=== PATIENT | male | born 1980 | race Caucasian/White ===

== ENCOUNTER → 2017-11-24 | Outpatient (CLI) | payer BC ==
--- NOTE | 2017-11-24 18:18 | RAD ---
EXAM DESCRIPTION: Chest,2 Views CLINICAL HISTORY: ACUTE BRONCHITIS COMPARISON: None TECHNIQUE: PA/lateral FINDINGS: 2 frontal films are required to cover the chest. There is no acute appearing cardiac or pulmonary abnormality. Heart size is normal with normal pulmonary vascularity. No pleural effusion or pneumothorax. Lungs are clear with no consolidating infiltrate. Lateral view shows intact sternum and T-spine. IMPRESSION: No acute process is identified in the chest. Electronically signed by: Neto Phillips MD 11/24/2017 6:17 PM CDT
== END ==
LOC: LAB.O 14:18
PROVIDERS: ATTEND Nurse Practitioner Family
DX: J20.9 Acute bronchitis, unspecified (principal)

== ENCOUNTER → 2018-06-15 | Outpatient (CLI) | payer BC ==
--- NOTE | 2018-06-16 09:33 | US ---
EXAM DESCRIPTION: Soft Tissue,Abdomen CLINICAL HISTORY: RLQ MASS AND SWELLING COMPARISON: None. TECHNIQUE: 2-D sonography of the right lower quadrant abdominal wall FINDINGS: Sonography reveals no solid or cystic mass. Some subcutaneous scarring is observed. No hernia is detected. IMPRESSION: Sonography fails to reveal evidence of a mass or hernia. Electronically signed by: Harvey Christensen MD 06/16/2018 9:32 AM CDT
== END ==
LOC: US 16:49
PROVIDERS: ATTEND Nurse Practitioner Family
DX: R19.03 Right lower quadrant abdominal swelling, mass and lump (principal)

== ENCOUNTER → 2018-07-27 | Outpatient (CLI) | payer BC ==
--- NOTE | 2018-07-27 15:07 | RAD ---
EXAM DESCRIPTION: Chest,2 Views CLINICAL HISTORY: PNEUMONIA COMPARISON: Previous study November 24, 2017 TECHNIQUE: PA/lateral FINDINGS: There is no acute appearing cardiac or pulmonary abnormality. Heart size is normal with normal pulmonary vascularity. No pleural effusion or pneumothorax. Lungs are clear with no consolidating infiltrate. Lateral view shows intact sternum and T-spine. IMPRESSION: No acute process is identified in the chest. Electronically signed by: Neto Phillips MD 07/27/2018 3:06 PM [facility]
== END ==
LOC: LAB.O 14:03
PROVIDERS: ATTEND Nurse Practitioner Family
DX: J18.9 Pneumonia, unspecified organism (principal)

== ENCOUNTER → 2019-01-22 | Outpatient (CLI) | payer BC | LOC: LAB.O 12:22 | PROVIDERS: ATTEND Nurse Practitioner Family | DX: R42 Dizziness and giddiness (principal); E06.3 Autoimmune thyroiditis ==

== ENCOUNTER → 2019-01-24 | Outpatient (CLI) | payer BC ==
--- NOTE | 2019-01-24 12:53 | CT ---
EXAM DESCRIPTION: Head w/wo Contrast CLINICAL HISTORY: Headache COMPARISON: None available TECHNIQUE: CT brain is performed prior to and following IV administration of routine adult dose of nonionic iodinated IV contrast. FINDINGS: Ventricles and sulci are unremarkable on the precontrast images. There is no hemorrhage or mass. There are no white matter abnormalities detected. The calvarium is unremarkable. The visualized paranasal sinuses and the mastoids are clear. Postcontrast images show normal enhancement of intracranial vessels. Normal fisher-white matter differentiation. No enhancing intracranial mass. No abnormal enhancement of the brain parenchyma to suggest disruption of the blood brain barrier. IMPRESSION: Normal CT of the brain before and after IV contrast. This exam was performed according to our departmental dose-optimization program, which includes automated exposure control, adjustment of the mA and/or kV according to patient size and/or use of iterative reconstruction technique. Electronically signed by: Neto Phillips MD 01/24/2019 12:51 PM CDT
== END ==
LOC: CT 11:24
PROVIDERS: ATTEND Nurse Practitioner Family
DX: R42 Dizziness and giddiness (principal); R51 Headache

== ENCOUNTER → 2019-07-02 | Outpatient (CLI) | payer BC ==
--- NOTE | 2019-07-02 14:33 | RAD ---
EXAM DESCRIPTION: Hip,Right 2 x-ray Views CLINICAL HISTORY: 39 years, Male, RT HIP PAIN COMPARISON: None TECHNIQUE: AP and frog leg lateral views of the right hip FINDINGS: 2 views of the right hip reveal no fracture or dislocation. No lytic bone lesion. There is no joint space abnormality observed. Enthesopathic changes at the inferior history. IMPRESSION: Negative for fracture or dislocation. Electronically signed by: Neto Phillips MD 07/02/2019 2:31 PM [facility]
--- NOTE | 2019-07-02 14:33 | RAD ---
EXAM DESCRIPTION: Pelvis x-ray single view CLINICAL HISTORY: 39 years Male, HIP PAIN COMPARISON: None. FINDINGS: Mild enthesopathy at the inferior ischial margins. No hip joint space narrowing. No hip fracture or dislocation. Greater trochanter of the proximal left femur is partly cut off from the film. Enthesopathy is seen at the lateral iliac wings. Bony pelvic ring appears intact. Sacrum appears intact with normal SI joints. IMPRESSION: Negative for fracture. Electronically signed by: Neto Phillips MD 07/02/2019 2:31 PM [facility]
== END ==
LOC: RAD 12:00
PROVIDERS: ATTEND Nurse Practitioner Family
DX: M25.559 Pain in unspecified hip (principal)

== ENCOUNTER → 2020-06-02 | Outpatient (CLI) | payer BC ==
--- NOTE | 2020-06-03 06:46 | RAD ---
EXAM DESCRIPTION: Hip,Right 2 Views CLINICAL HISTORY: PAIN IN RIGHT HIP COMPARISON: July 02, 2019 IMPRESSION: 2 views of the right hip show no acute fracture, focal bone destruction, or joint dislocation. There has been little interval change. Electronically signed by: Jimmy García MD 06/03/2020 6:44 AM CDT
--- NOTE | 2020-06-03 06:47 | RAD ---
EXAM DESCRIPTION: Pelvis CLINICAL HISTORY: HIP PAIN RIGHT COMPARISON: July 02, 2019 IMPRESSION: Single AP supine view of the pelvis shows no acute fracture, focal bone destruction, or joint dislocation. No advanced arthrosis is identified. Electronically signed by: Jimmy García MD 06/03/2020 6:45 AM CDT
== END ==
LOC: RAD 09:51
PROVIDERS: ATTEND Orthopaedic Surgery
DX: M25.551 Pain in right hip (principal)